=== PATIENT | female | born 1945 | race Caucasian/White ===

== ENCOUNTER 2016-04-03 10:14 | Emergency (ER) | payer MEDICARE, OTHER ==
[2016-04-03] MEDS ORDERED: IOPAMIDOL 370 (76%) 100 ML VIAL IV ONE (10:15)
[2016-04-03 11:17] LABS: ABSOLUTE NEUTROPHIL COUNT 3.8 K/mm3 (1.8-7.7); BASO % 0.7 % (0.2-1.0); EOS # 0.1 (0.0-0.5); EOS % 1.1 % (0.9-2.9); HEMATOCRIT 40.2 % (37.0-47.0); IMM NEUT% 0.2 % (0-1); LYMPH # 1.2 (1.0-4.8); LYMPH % 21.3 % (15-45); MEAN CELL VOLUME 90.3 fl (81.0-99.0); MEAN CORPUSCULAR HEMOGLOBIN 31.5 pg (27.0-31.0); MEAN CORPUSCULAR HGB CONC 34.8 g/dl (33.0-37.0); MEAN PLATELET VOLUME 9.3 fl (7.4-10.4); MONO # 0.5 (0.0-0.8); MONO % 8.8 % (4-12); NEUT % 67.9 % (43-75); PLATELET COUNT 330 K/mm3 (130-400); RED CELL DISTRIBUTION WIDTH 12.7 % (11.5-14.5)
[2016-04-03 11:29] LABS: ALB/GLOB RATIO 1.4 (>1.0); ALBUMIN 4.2 gm/dL (3.5-5.7); CALCIUM 9.6 mg/dL (8.6-10.3)
[2016-04-03 11:32] LABS: TROPONIN I < 0.01 ng/ml (0.0-0.06)
[2016-04-03 11:35] LABS: CKMB ISOENZYME 1.6 ng/ml (0.6-6.3)
--- NOTE | 2016-04-03 12:26 | CT ---
Exam: CT angiogram chest with contrast Comparison: CT abdomen 09/17/2007 History: Chest pain and shortness of breath. Technique: CT angiogram of the chest was obtained following the administration of 80 mL Isovue-370 intravenous contrast using a CT angiogram pulmonary embolism protocol which was supplemented with MIP reconstructions from the CT workstation. FINDINGS: Examination is slightly limited due to motion artifact although examination remains diagnostic. There is no evidence of acute pulmonary thromboembolic disease the proximal subsegmental level. Although the main pulmonary artery is normal in size, the right and left pulmonary arteries are prominent which could reflect underlying pulmonary hypertension. There is borderline panchamber cardiomegaly. There is no significant mediastinal or hilar lymphadenopathy by size criteria. There is no pleural or pericardial effusion. There is minor dependent atelectasis within the lung bases. There is no pulmonary edema or focal airspace disease. Calcified nodule seen within the anterior right upper lobe. 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 No worrisome lytic or blastic osseous lesions identified. IMPRESSION: 1. No evidence of acute pulmonary thromboembolic disease to the proximal subsegmental level. 2. Although the main pulmonary artery is normal in size, the left and right pulmonary arteries are dilated which may reflect pulmonary hypertension. 3. Borderline panchamber cardiomegaly without evidence of heart failure. Report called to Dr. Hare 1220 hours 04/03/2016.
== END 2016-04-03 14:25 | disposition home or self-care (01) ==
LOC: ED 10:14
DX: R07.9 Chest pain, unspecified (principal); I10 Essential (primary) hypertension; R11.0 Nausea
CPT/HCPCS: 85025; 82553; 80053; 84484 ×2; 71275; 99284 ×2; 93005 ×2; Q9967